=== PATIENT | male | born 1945 | race Caucasian/White ===

== ENCOUNTER 2021-01-10 15:14 | Emergency (ER) | payer MEDICARE ==
[~2021-01-10] VITALS: Ht 175.3 cm; Wt 75.6 kg
[2021-01-10] MEDS ORDERED: FAMOTIDINE20 MG PO (15:54)
[2021-01-10] MEDS ORDERED: NAPROXEN250 MG PO (15:54)
[2021-01-10] MEDS ORDERED: LEVALBUTEROL TA15 GM PO (15:54)
[2021-01-10] MEDS ORDERED: NITROFURANTOIN100 MG PO (15:54)
[2021-01-10] MEDS ORDERED: ASPIRIN EC81 MG PO (15:54)
[2021-01-10] MEDS ORDERED: ALCLOMETASONE D (15:54)
[2021-01-10] MEDS ORDERED: SYMBICORT 80-10.2 GM INH (15:54)
[2021-01-10] MEDS ORDERED: DONEPEZIL HCL5 MG (15:54)
[2021-01-10] MEDS ORDERED: PLAVIX75 MG PO (15:54)
[2021-01-10] MEDS ORDERED: VOLTAREN-XR100 MG PO (15:54)
[2021-01-10] MEDS ORDERED: PHENAZOPYRIDIN200 MG (15:54)
[2021-01-10] MEDS ORDERED: VESICARE10 MG (15:54)
[2021-01-10] MEDS ORDERED: LIPITOR20 MG PO (15:54)
[2021-01-10] MEDS ORDERED: KETOCONAZOLE15 GM TOP (15:54)
[2021-01-10] MEDS ORDERED: DICYCLOMINE HCL 20 MG TAB PO ONE (16:45)
[2021-01-10] MEDS ORDERED: DICYCLOMINE HCL 10 MG CAP ONE (16:49)
[2021-01-10] MEDS ORDERED: SODIUM CHLORIDE 0.9% 50ML 50 ML ONE (17:56)
[2021-01-10] MEDS ORDERED: IOPAMIDOL 370 MG/ML 200 ML INFUS..BTL INJ ONE (17:57)
[2021-01-10] MEDS ORDERED: CIPRO500 MG PO (18:54)
[2021-01-10] MEDS ORDERED: FLAGYL500 MG PO (18:55)
[2021-01-10] MEDS ORDERED: ONDANSETRON ODT4 MG PO (18:56)
[2021-01-10] MEDS ORDERED: DICYCLOMINE HCL20 MG PO (18:57)
[2021-01-10] MEDS ORDERED: TYLENOL # 31 EA PO (18:59)
== END 2021-01-10 19:33 | disposition home or self-care (01) ==
LOC: FSED 15:30
DX: R10.30 Lower abdominal pain, unspecified (principal); K57.32 Diverticulitis of large intestine without perforation or abscess without bleeding; C67.9 Malignant neoplasm of bladder, unspecified; R63.0 Anorexia; D72.829 Elevated white blood cell count, unspecified; I73.9 Peripheral vascular disease, unspecified; E78.5 Hyperlipidemia, unspecified; J44.9 Chronic obstructive pulmonary disease, unspecified; Z85.46 Personal history of malignant neoplasm of prostate
CPT/HCPCS: 74177; 80053; 81003; 85025; 99284; Q9967

== ENCOUNTER 2024-01-20 09:36 | Emergency (ER) | payer MEDICARE ==
[~2024-01-20] VITALS: Ht 175.3 cm; Wt 70.3 kg
[~2024-01-20 09:36] MED LIST: ALCLOMETASONE D; ASPIRIN EC81 MG PO; CIPRO500 MG PO; DICYCLOMINE HCL20 MG PO; DONEPEZIL HCL5 MG; FAMOTIDINE20 MG PO; FLAGYL500 MG PO; KETOCONAZOLE15 GM TOP; LEVALBUTEROL TA15 GM PO; LIPITOR20 MG PO; NAPROXEN250 MG PO; NITROFURANTOIN100 MG PO; ONDANSETRON ODT4 MG PO; PHENAZOPYRIDIN200 MG; PLAVIX75 MG PO; SYMBICORT 80-10.2 GM INH; TYLENOL # 31 EA PO; VESICARE10 MG; VOLTAREN-XR100 MG PO
[2024-01-20 10:25] LABS: BASOPHILS # (AUTO) 0.1 (0.0-0.1); BASOPHILS % 0.4 % (0.0-1.0); EOSINOPHILS % 0.3 % (0.0-6.0); HEMATOCRIT 38.7 % (38.2-49.6); HEMOGLOBIN 12.8 g/dL (14.0-18.0); LYMPHOCYTES # (AUTO) 1.2 (1.0-3.2); LYMPHOCYTES % 10.6 % (18.0-39.1); MEAN CORPUSCULAR HGB CONC 33.1 g/dL (31-35); MEAN CORPUSCULAR VOLUME 93.7 fL (81-99); MONOCYTES % 8.7 % (4.4-11.3); NEUTROPHILS % 78.7 % (38.7-80.0); PLATELET COUNT 287 x10e3/uL (140-360); RED BLOOD COUNT 4.13 x10e6/uL (4.3-5.7); WHITE BLOOD COUNT 11.43 x10e3/uL (4.8-10.8)
[2024-01-20] MEDS: KETOROLAC TROMETHAMINE 30 MG/ML VIAL IV STA (10:31)
[2024-01-20 10:42] LABS: ALBUMIN 3.4 g/dL (3.5-5.0); ALBUMIN/GLOBULIN RATIO 0.7 (0.8-2.0); BILIRUBIN,TOTAL 1.1 mg/dL (0.2-1.2); CALCIUM 9.5 mg/dL (8.4-10.2); CREATININE, SERUM 1.02 mg/dL (0.72-1.25)
[2024-01-20 10:48] LABS: TROPONIN I 0.028 ng/mL (0-0.300)
[2024-01-20] MEDS ORDERED: AMOX TR-K CLV1 EAC2 PO (11:10)
[2024-01-20] MEDS ORDERED: DOXYCYCLINE HY100 MG PO (11:10)
[2024-01-20 11:21] VITALS: BP 115/66; PULSE 81; RESP 18; TEMP 98.4; O2SAT 98
== END 2024-01-20 11:24 | disposition home or self-care (01) ==
LOC: ER 09:47
DX: R05.9 Cough, unspecified (principal); J18.9 Pneumonia, unspecified organism; R07.89 Other chest pain; J44.9 Chronic obstructive pulmonary disease, unspecified; E78.5 Hyperlipidemia, unspecified; I73.9 Peripheral vascular disease, unspecified; G31.09 Other frontotemporal neurocognitive disorder; F02.80 Dementia in other diseases classified elsewhere, unspecified severity, without behavioral disturbance, psychotic disturbance, mood disturbance, and anxiety; Z85.46 Personal history of malignant neoplasm of prostate; Z85.51 Personal history of malignant neoplasm of bladder
CPT/HCPCS: 36415; 71045; 80053; 83690; 84484; 85025; 93005; 99283; J1885